=== PATIENT | female | born 1995 | race Caucasian/White ===

== ENCOUNTER 2022-12-31 15:55 | Emergency (ER) | payer OTHER, SELFPAY ==
--- NOTE | 2022-12-31 15:58 | ED.URI ---
HPI - URI/Sore Throat General Chief Complaint: Upper Respiratory Infection Stated Complaint: sorethroat Time Seen by Provider: 12/31/22 16:13 Source: patient and RN notes reviewed Mode of arrival: ambulatory Limitations: no limitations History of Present Illness HPI Narrative: 37-year-old female presents with concern for fever, chills, body aches, chills, headache. Reports symptoms started 2 days ago. She denies taking any kixx-jcv-iwwduwu medications for her symptoms MD elicited complaint: fever and sore throat Related Data Allergies Allergy/AdvReac Type Severity Reaction Status Date / Time No Known Allergies Allergy Verified 12/31/22 16:04 Review of Systems Review of Systems: CONSTITUTIONAL: Reports malaise, chills, sweats, fever. EYES: Denies visual changes, redness, or discharge. ENT: Denies rhinorrhea, congestion, sinus pain. Reports otalgia and sore throat. CARDIOVASCULAR: Denies chest pain, palpitations, or edema. RESPIRATORY: Denies cough. Denies dyspnea. GASTROINTESTINAL: Denies abdominal pain, nausea, vomiting, diarrhea SKIN: Denies rash or itching. MUSCULOSKELETAL: Denies myalgia. NEUROLOGIC: Reports headache. All systems reviewed & are unremarkable except as noted in HPI and below PMFSH Social History Social History (Updated 11/14/22 @ 11:01 by Romain Bellamy MA) Smoking status: Never smoker Smokeless tobacco user: other Second hand tobacco smoke exposure: No Alcohol intake: current Alcohol use details: social drinker Substance use: never Lack of Transportation: No Lack of Food: Never True Current Housing: I Have Housing Concerned About Future Housing: No Difficulty Paying Gas/Electric Bills: No Difficulty Paying for Meds: No Currently Unemployed: No Education: High School Diploma/GED Difficulty w/ Childcare or Family Care: No Comments At time of signature, agree with nursing past medical, surgical, social and family history. There is no relevant family history pertinent to the presenting complaint Exam Narrative: GENERAL: Well-appearing, well-nourished, and in no acute distress. HEAD: Normocephalic EYES: PERRLA, conjunctivae clear ENT: Nares clear, turbinates edematous and erythematous. Mucous membranes moist. TM pearly mills with sharp light reflex bilaterally; no tragal tenderness. Oropharynx erythematous without lesions. Tonsils not enlarged and without exudate, no drooling, no hoarseness, no trismus, uvula midline. NECK: Supple. No lymphadenopathy CHEST: Clear to auscultation, breath sounds equal. No wheezing, rhonchi, rales, or stridor. No respiratory distress, speaks in full sentences. HEART: Regular rate and rhythm. No murmur heard. SKIN: Warm, dry, no rash. NEURO: Alert and oriented x3. PSYCH: Normal mood and affect Course Course Emergency Course: Patient is aware of diagnosis, understands and agrees to treatment plan. Anticipatory guidance given. Patient agrees to follow-up as directed and is aware of reasons to seek care at the emergency department. Portions of this record may have been created with voice recognition software Level of Care: Express Care Visit Vital Signs Vital signs: Reviewed. MDM - URI/Sore Throat MDM Narrative Medical decision making narrative: Differential diagnosis considered: White virus, strep pharyngitis, allergic rhinitis, upper respiratory tract infection, sinusitis, rhinosinusitis, nasopharyngitis. viral pharyngitis, otitis media, otitis externa, pneumonia, bronchitis, viral cough syndrome, viral syndrome, and influenza. Exam findings show no acute concerns or changes; patient is non-toxic appearing and is in no distress. Patient is appropriate for outpatient treatment and follow-up. Lab Data Attestation: I reviewed the patient's lab results. Critical Care Time Critical Care Time Critical Care Time: No Discharge Plan Discharge Clinical Impression: Pharyngitis Patient Disposition: Home, Self-Ca
[2022-12-31 16:05] VITALS: BP 131/88; PULSE 94; RESP 18; TEMP 37.7; O2SAT 100
== END 2022-12-31 16:29 | disposition home or self-care (01) ==
PROVIDERS: Emergency Provider Nurse Practitioner; PCP Emergency Medicine
DX: J02.9 Acute pharyngitis, unspecified (principal)
CPT/HCPCS: 87081; 87880; 99213; G0463

== ENCOUNTER 2025-02-03 07:02 | Outpatient (CLI) | payer OTHER, SELFPAY ==
--- OUTSIDE RECORDS SUMMARY | 2025-02-03 07:04 | XMS_ITS | Clinical Summary ---
Author Organization [facility] Address [address] [place] [address] Phone Care Team Providers Care Knife Setter Assembler Name Role Phone Iliana Szymanski APRN, CNP Primary Care Provider [phone] [phone] Allergies Active Allergy Reactions Criticality Noted Date Comments Penicillin G Rash 01/17/2025 Medications dicyclomine (BENTYL) 20 MG Tablet Take 1 Tab by mouth every 6 hours. 30 Tab 0 6 Active Additional Information Patient not taking.Reported on 08/09/2024 ondansetron (ZOFRAN ODT) 4 MG TABLET DISPERSIBLE Take 1 Tab by mouth every 8 hours as needed for Nausea. 15 Tab 0 6 Active Additional Information Patient not taking.Reported on 08/09/2024 amLODIPine (NORVASC) 5 MG Tablet Take 1 Tablet by mouth daily. 90 Tablet Active Active Problems Problem Noted Date Diagnosed Date Chronic post-traumatic stress disorder (PTSD) Depression with anxiety 02/12/2021 Encounters Date Type Department Care Team Description 01/17/2025 11:10 AM CDT - 01/17/2025 1:04 PM CDT Emergency [facility] Emergency [address] [place] [address] Andrea Kimbrough DO Hypertension Discharge Disposition: Discharged to home or Selfcare 01/17/2025 Travel from Last 3 Months Family History Medical History Relation Name Comments Bipolar Disorder Father Depression Maternal Grandmother Depression Mother Bipolar Disorder Paternal Grandfather Relation Name Status Comments Father Maternal Grandmother Mother Paternal Grandfather Social History Tobacco Use Types Packs/Day Years Used Date Smoking Tobacco: Never Smokeless Tobacco: Never Alcohol Use Standard Drinks/Week Comments Not Currently 0 (1 standard drink = 0.6 oz pur e alcohol) very seldomly PHQ-2 Answer Date Recorded Total Score - Questions 1-9 0 08/0 01/2021 Sexually Active Control Partners Comments Yes I.U.D. Comments No Sex and Gender Information Value Date Recorded Sex Assigned at Not on file Legal Sex Female 7:34 PM CDT Gender Identity Not on file Sexual Orientation Not on file Last Filed Vital Signs Vital Sign Reading Time Taken Comments Blood Pressure 122/82 01/17/2025 1:00 PM CDT Pulse 84 01/17/2025 1:00 PM CDT Temperature 36.7 C (98 F) 01/17/2025 11:02 AM CDT Respiratory Rate 18 01/17/2025 1:00 PM CDT Oxygen Saturation 100% 01/17/2025 1:00 PM CDT Inhaled Oxygen Concentration - - Weight 113.4 kg (250 lb) 01/17/2025 11:02 AM CDT Height 160 cm (5' 3) 01/17/2025 11:02 AM CDT Body Mass Index 44.29 01/17/2025 11:02 AM CDT Plan of Treatment Health Maintenance Due Date Last Done Comments Hepatitis C Virus (HCV) Screening 1997 TdaP Immunization 1997 Pap Smear 2018 SARS-COV-2 Immunization ( season) 2024 Influenza Immunization (Season Ended) 2025 Respiratory Syncytial Virus (RSV) Immunization (Adult) (1 - 1-dose 75+ series) 01/23/2072 Hepatitis B Immunization Completed 997, 1997, 1997 DTaP/Tdap/Td Immunization Discontinued 2007, 08/04/1998, 1997, Additional history exists Meningococcal Immunization (ACWY) Aged Out 04/25/2008 No longer eligible based on patient's age to complete this topic Human Papillomavirus (HPV) Immunization Aged Out No longer eligible based on patient's age to complete this topic Pneumococcal Immunization Combined Aged Out No longer eligible based on patient's age to complete this topic Rotavirus Immunization Aged Out No lo nger eligible based on patient's age to complete this topic Goals Goal Patient Goal Type Associated Problems Recent Progress Patient-Stated? Author Behavioral Health Behavioral Health On track( 9:16 AM CDT) Yes Lloyd Solitario LCSW Note: I need to cope better with issues with abandonment Goal Reviewed with: patient Readiness to change: Ready to change Department associated with goal: [facility] Steps to achieve goal: Patient counseled on coping with issues of abandonment Patient counseled on coping with stress Behavioral Health Behavioral Health On track( 9:16 AM CDT) No Lloyd Solitario, LISETH Note: Goal: Patient will be able to report improved mood/ability to function to an acceptable level Goal Reviewed with: patient Readiness to change: Ready to change Department associated with goal: [facility] Steps to achieve goal: Patient counseled on coping with depressed mood Patient counseled on aspects of healthy self-care and importance of adhering to a healthy daily schedule Procedures Procedure Name Priority Date/Time Associated Diagnosis Comments CBC WITH AUTO DIFFERENTIAL STAT 01/17/2025 11:20 AM CDT TROPONIN I, HIGH SENSITIVITY (HSTRP) STAT 01/17/2025 11:20 AM CDT COMPLETE BLOOD COUNT (CBC) WITH DIFF STAT 01/17/2025 11:20 AM CDT CMP (COMPREHENSIVE METABOLIC PANEL) STAT 01/17/2025 11:20 AM CDT EKG 12 LEAD STAT 01/17/2025 11:15 AM CDT EKG SCAN 01/17/2025 12:00 AM CDT from Last 3 Months Results * TROPONIN I, HIGH SENSITIVITY (HSTRP) (01/17/2025 11:20 AM CDT) [facility] TROPONIN I, HIGH SENSITIVITY- [facility] <3 <=14 ng/L 01/17/2025 12:04 PM CDT [facility] Comment: High-sensitivity troponin I results are reported in ng/L making the result appear to be 1,000 times higher than the contemporary troponin I value which is reported in ng/ml. Results from [facility]. Blood Venipuncture / Unknown 01/17/2025 11:20 AM CDT 01/17/2025 11:39 AM CDT us Andrea Kimbrough DO CHEMISTRY ORDERABLES Fi nal Result [facility] [address] [place] [address] * (ABNORMAL) CBC with Auto Differential (01/17/2025 11:20 AM CDT) [facility] WBC 7.91 4.00 - 12.00 10(3)/mcL 01/17/2025 11:42 AM CDT [facility] RBC 4.45 3.80 - 5.30 10(6)/[facility] 01/17/2025 11:42 AM CDT [facility] HEMOGLOBIN (HGB) 12.9 12.0 - 15.8 g/dL 01/17/2025 11:42 AM CDT [facility] HEMATOCRIT (HCT) 39.8 36.0 - 47.0 % 01/17/2025 11:42 AM CDT [facility] MCV 89.4 82.0 - 96.0 fL 01/17/2025 11:42 AM CDT [facility] MCH 29.0 26.0 - 34.0 pg 01/17/2025 11:42 AM CDT [facility] MCHC 32.4 31.0 - 36.0 g/dL 01/17/2025 11:42 AM CDT [facility] PLATELET COUNT 347 140 - 440 10(3)/mcL 01/17/2025 11:42 AM CDT [facility] RDW 11.9 11.8 - 15.5 % 01/17/2025 11:42 AM CDT [facility] MPV 8.8(L) 9.7 - 12.4 fL 01/17/2025 11:42 AM CDT [facility] NEUTROPHILS 64.7 47.0 - 73.0 % 01/17/2025 11:42 AM CDT [facility] LYMPHOCYTES 25.3 18.0 - 42.0 % 01/17/2025 11:42 AM CDT [facility] MONOCYTES 6.8 4.0 - 12.0 % 01/17/2025 11:42 AM CDT [facility] EOSINOPHILS 2.7 0.0 - 5.0 % 01/17/2025 11:42 AM CDT [facility] BASOPHILS 0.5 0.0 - 1.0 % 01/17/2025 11:42 AM CDT [facility] ABSOLUTE NEUTROPHILS 5.12 1.60 - 7.70 10(3)/[facility] 01/17/2025 11:42 AM CDT [facility] ABSOLUTE LYMPHOCYTES 2.00 1.30 - 3.20 10(3)/[facility] 01/17/2025 11:42 AM CDT [facility] ABSOLUTE MONOCYTES 0.54 0.20 - 1.00 10(3)/[facility] 01/17/2025 11:42 AM CDT [facility] ABSOLUTE EOSINOPHIL 0.21 0.00 - 0.40 10(3)/[facility] 01/17/2025 11:42 AM CDT [facility] ABSOLUTE BASOPHILS 0.04 0.00 - 0.10 10(3)/[facility] 01/17/2025 11:42 AM CDT [facility] NRBC PER 100 WBC 0 01/18/20 11:42 AM CDT [facility] Blood Venipuncture / Unknown 01/17/2025 11:20 AM CDT 01/17/2025 11:39 AM CDT us Andrea Fernandez Luis E DO HEMATOLOGY ORDERABLES F inal Result [facility] [address] [place] [address] * (ABNORMAL) CMP (Comprehensive Metabolic Panel) (01/17/2025 11:20 AM CDT) SODIUM 138 136 - 145 mmol/L 01/17/2025 12:23 PM CDT [facility] POTASSIUM 3.9 3.5 - 5.1 mmol/L 01/17/2025 12:23 PM CDT [facility] CHLORIDE 105 98 - 107 mmol/L 01/17/2025 12:23 PM CDT [facility] CO2, VENOUS 23 22 - 30 mmol/L 01/17/2025 12:23 PM CDT [facility] ANION GAP 13.9 <18.0 mmol/L 01/17/2025 12:23 PM CDT [facility] GLUCOSE 150(H) 70 - 99 mg/dL 01/17/2025 12:23 PM CDT [facility] BUN 12 5 - 18 mg/dL 01/17/2025 12:23 PM CDT [facility] CREATININE, BLOOD 0.65 0.60 - 1.00 mg/dL 01/17/2025 12:23 PM CDT [facility] BUN/CREATININE RATIO 18 12 - 20 ratio 01/17/2025 12:23 PM CDT [facility] TOTAL PROTEIN 8.1(H) 6.0 - 8.0 g/dL 01/17/2025 12:23 PM CDT [facility] ALBUMIN 4.4 3.5 - 5.0 g/dL 01/17/2025 12:23 PM CDT [facility] A/G RATIO 1.2 1.0 - 2.2 01/17/2025 12:23 PM CDT [facility] CALCIUM 9.3 8.7 - 10.5 mg/dL 01/17/2025 12:23 PM CDT [facility] T BILI 0.4 0.2 - 1.2 mg/dL 01/17/2025 12:23 PM CDT [facility] SGOT (AST) 93(H) <43 U/L 01/17/2025 12:23 PM CDT [facility] SGPT (ALT) 49 <56 U/L 01/17/2025 12:23 PM CDT [facility] ALKALINE PHOSPHATASE 88 40 - 150 U/L 01/17/2025 12:23 PM CDT [facility] GFR, ESTIMATED >60 >=60 01/17/2025 12:23 PM CDT [facility] Comment: Creatinine Clearance is the preferred criteria for selecting drug dose adjustments in renally impaired patients. The GFR is provided as additional pertinent clinical information. GFR is reported in mL/min/1.73 sq m. Calculation based on the Chronic Kidney Disease Epidemiology Collaboration (CKD- EPI) equation refit without adjustment for race. GFR, EST. >60 >=60 025 12:23 PM CDT [facility] GFR, EST. NONAFRICAN >60 >=60 01/17/2025 12:23 PM CDT [facility] Blood Venipuncture / Unknown 01/17/2025 11:20 AM CDT 01/17/2025 11:39 AM CDT us Andrea Kimbrough DO CHEMISTRY ORDERABLES Fi nal Result [facility] [address] [place] [address] * EKG 12 LEAD (01/17/2025 11:15 AM CDT) Ventricular Rate 82 BPM EXTERNAL EKG Atrial Rate 82 BPM EXTERNAL EKG P-R Interval 188 ms EXTERNAL EKG QRS Duration 102 ms EXTERNAL EKG Q-T Duration 382 ms EXTERNAL EKG QTC CALCULATION 446 ms EXTERNAL EKG P [place] 26 degrees EXTERNAL EKG R [place] -11 degrees EXTERNAL EKG T [place] -1 degrees EXTERNAL EKG 01/17/2025 11:1 5 AM CDT Impressions EXTERNAL EKG - 01/18/2025 10:16 AM CDT Normal sinus rhythm Minimal voltage criteria for LVH, may be normal variant ( R in aVL ) Borderline ECG No previous ECGs available Confirmed by Julissa Piper ([id number]) on 01/18/2025 10:16:11 AM Narrative Procedure Note Julissa Piper DO - 01/18/2025 IMPRESSION: Normal sinus rhythm Minimal voltage criteria for LVH, may be normal variant ( R in aVL ) Borderline ECG No previous ECGs available Confirmed by Julissa Piper ([id number]) on 01/18/2025 10:16:11 AM us Andrea Kimbrough DO IMG ECG ORDERABLES Elizabeth l Result EXTERNAL EKG * EKG SCAN (01/17/2025 12:00 AM CDT) 01/17/2025 us Provider Scan IMG ECG ORDERABLES Final Result RESULTING AGENCY from Last [address] [place] [address] [place] [address] Care Teams Knife Setter Assembler Relationship Specialty Start Date End Date Iliana Szymanski APRN, CAPITAL EQUIPMENT SPECIALIST [facility] [address] [facility] [address] [place] [address] PCP - General Advanced Practice Nurse 02/09/21
--- OUTSIDE RECORDS SUMMARY | 2025-02-03 07:04 | XMS_ITS | Referral Summary ---
Author Organization [facility] [address] Address [address] [place] [address] Phone Care Team Providers Care Interior Design Professional Name Role Phone Musa Lee DO Primary Care Provider [phone]- [phone] Allergies No known active allergies Medications PNV cmb 61-xrha-MV-omega -3-dha 97-5-992-200 mg combo pack Take by mouth Active HYDROcodone-acet aminophen (NORCO) 5-325 mg per tabletIndication s:Pain Take 1 tablet by mouth every 4 (four) hours as needed for pain 24 tablet 12/02/2020 Active ibuprofen (ADVIL,MOTRIN) 600 mg tabletIndication s:Cramps Take 1 tablet (600 mg total) by mouth every 6 (six) hours as needed for pain 30 tablet 1 12/02/2020 Active naproxen (NAPROSYN) 500 mg tablet Take 1 tablet (500 mg total) by mouth 2 (two) times a day with meals 30 tablet 02/07/2024 Active methocarbamoL (ROBAXIN) 500 mg tablet Take 1 tablet (500 mg total) by mouth 2 (two) times a day 20 tablet 02/07/2024 Active Active Problems Problem Noted Date Diagnosed Date Depression 01/09/2009 Overview (12/05/2016): DEPRESSIVE DISORDER NEC Immunizations Immunization Administration Dates Next Due DTaP 08/04/1998,1997,1997 ,1997 DTaP 5 Pertussis 03/22/2008 Hep A, Pediatric 04/25/2008,03/06/2007 Hep B, Adolescent or Pediatric 1997,1996,1997 Hib (HbOC) 05/05/1998,1997,1997 ,1997 IPV 06/09/2002,08/04/1998,1997 ,1997 MMR 06/09/2002,05/05/1998 Meningococcal MCV4P (Menactra) 04/25/2008 Social History Tobacco Use Types Packs/Day Years Used Date Smoking Tobacco: Never Tobacco Cessation:Counseling Given: No Alcohol Use Standard Drinks/Week Comments No 0 (1 standard drink = 0.6 oz pur e alcohol) AUDIT-C Answer Date Recorded Q1: How often do you have a drink containing alc ohol? Never 11/24/2020 Average Number of Drinks Not on file 021 Frequency of Binge Drinking Not on file 10/31 Personal Safety Answer Date Recorded Have you ever been in or are you currently in a harmful physical or emotional relationship or is someone making you feel afraid or unsafe? 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 MANAGER Gender Identity Not on file Sexual Orientation Not on file Last Filed Vital Signs Vital Sign Reading Time Taken Comments Blood Pressure 151/91 02/07/2024 3:34 PM CDT Pulse 71 02/07/2024 3:34 PM CDT Temperature 36.3 C (97.4 F) 02/07/2024 3:34 PM CDT Respiratory Rate 16 02/07/2024 3:34 PM CDT Oxygen Saturation 99% 02/07/2024 3:34 PM CDT Inhaled Oxygen Concentration - - Weight 98.4 kg (217 lb) 02/07/2024 3:34 PM CDT Height 162.6 cm (5' 4) 02/07/2024 3:34 PM CDT Body Mass Index 37.25 02/07/2024 3:34 PM CDT Plan of Treatment Not on file Insurance [facility] CHOICE PLUS [facility] H[facility]/PPO Address: [facility] [address] [place] [address] Advance Directives For more information, please contact: [phone] * Full Code (Latest Code Status on File) Date Activated Date Inactivated Comments 12/01/2020 4:44 PM 12/03/2020 5:09 PM * Full Code Date Activated Date Inactivated Comments 11/30/2020 6:30 PM 12/01/2020 4:44 PM Full CPR in ca se of cardiopulmonary arrest Care Teams Interior Design Professional Relationship Specialty Start Date End Date Musa Lee DO PCP - General 12/03/16
--- OUTSIDE RECORDS SUMMARY | 2025-02-03 07:04 | XMS_ITS | Clinical Summary ---
Author Organization [facility] [address] Address [address] [place] [address] Phone Care Team Providers Care Beater Lead Name Role Phone Musa Lee DO Primary Care Provider +1- [phone] Allergies No known active allergies Medications PNV cmb 12-axfk-NB-omega -3-dha 18-6-117-200 mg combo pack Take by mouth Active [...] ,1997 MMR 06/09/2002,05/05/1998 Meningococcal MCV4P (Menactra) 04/25/2008 Surgical History Surgery Date Site/Laterality Comments OTHER SURGICAL HISTORY 2017 Menorrhagia & dysmenorrhea: Nuvaring OTHER SURGICAL HISTORY 2011 Right knee dislocation & loose cartilage: arthroscopic repair Medical History Medical History Date Comments Hx Other Medical follow up medic ation Depression Depression Hx Other Medical 2016 Menorrhagia & d ysmenorrhea Hx Other Medical 2011 Right knee disl ocation & loose cartilage Hx Other Medical Migraine headac hes Hx Other Medical Anxiety Family History Medical History Relation Name Comments Heart attack Maternal Grandfather DC; Hypertension Maternal Grandfather Hyperte nsion; Ulcerative colitis Maternal Grandmother U lcerative colitis; Hypertension Mother Hypertension; Heart disease Other Family history of Heart disease; Relation Name Status Comments Maternal Grandfather Maternal Grandmother Mother Other Social History Tobacco Use Types Packs/Day Years [...] on file Legal Sex Female 2:21 PM 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] 02/07/2024 3:34 PM CDT Plan of Treatment Health Maintenance Due Date Last Done Comments Cervical Cancer Screening 1997 Depression Screening 1997 Hepatitis C Screening 1997 Varicella Vaccines (1 of 2 - 13+ 2-dose series) 2010 Regular Well Visit/Exam 18-64 2015 DTaP/Tdap/Td Vaccine (6 - Tdap) 03/22/2018 03/22/2008, 08/04/1998, 1997, Additional history exists Influenza Vaccine (Season Ended) 2025 Hepatitis B Screening Completed 1997 , 1997, 1997 HPV Vaccines Aged Out No longer eligi ble based on patient's age to complete this topic Pneumococcal vaccine <65 Aged Out No longer eligible based on patient's age to complete this topic Insurance [facility] CHOICE PLUS Advance Directives For more information, please contact: [phone] * Full Code (Latest Code Status on File) Date Activated Date Inactivated Comments 12/01/2020 4:44 PM 12/03/2020 5:09 PM * Full Code Date Activated Date Inactivated Comments 11/30/2020 6:30 PM 12/01/2020 4:44 PM Full CPR in ca se of cardiopulmonary arrest Care Teams Beater Lead Relationship Specialty Start Date End Date Musa Lee DO PCP - General 12/03/16
[2025-02-03 20:29] LABS: Alanine Aminotransferase 133 U/L (6-35); Albumin Level 4.4 g/dL (3.5-5.1); Alkaline Phosphatase 110 U/L (38-126); Anion Gap 15 mmol/L (4-12); Aspartate Amino Transferase 216 U/L (14-36); Bilirubin,Total 0.4 mg/dL (0.2-1.3); Blood Urea Nitrogen 14 mg/dL (7-17); Calcium 9.5 mg/dL (8.4-10.2); Carbon Dioxide 20 mmol/L (22-30); Chloride 104 mmol/L (98-107); Cholesterol 148 mg/dL (0-200); Estimated Glomerular Filt Rate > 60; Glucose 198 mg/dL (65-110); HDL Direct 27 mg/dL; Potassium 4.1 mmol/L (3.4-5.0); Sodium 139 mmol/L (137-145); Total Protein 7.5 g/dL (6.3-8.2); Triglycerides 397 mg/dL (<150)
[2025-02-03 20:41] LABS: Hematocrit 40.3 % (37.0-47.0); Hemoglobin 12.2 g/dL (12.0-15.0); Mean Corpuscular HGB Conc 30.3 g/dl (32-36); Mean Corpuscular Hemoglobin 28.6 pg (26-34); Mean Corpuscular Volume 94.4 fl (80-100); Mean Platelet Volume 8.7 fl (7.4-10.4); Platelet Count Result 374 k/mm3 (150-375); Red Blood Count 4.27 M/mm3 (4.2-5.4); Red Cell Distribution Width 12.3 % (11.5-14.5); White Blood Count 7.2 K/mm3 (4.5-10.0)
[2025-02-03 20:52] LABS: LDL Cholesterol Direct 48 mg/dL
[2025-02-03 22:12] LABS: Free T4 Free Thyroxine 1.14 ng/dL (0.78-2.19); Vitamin D 25 Hydroxy 24.8 ng/mL
[2025-02-03 22:17] LABS: Hemoglobin A1C 7.4 % (<5.7)
[2025-02-07 12:59] LABS: Thyroid Peroxidase Antibodies <1 IU/mL (<9)
== END 2025-02-03 07:03 | disposition home or self-care (01) ==
LOC: ANHBWCLAB 07:03
PROVIDERS: PCP Nurse Practitioner Adult Health; Visit Provider Nurse Practitioner Adult Health
DX: E55.9 Vitamin D deficiency, unspecified (principal); Z00.00 Encounter for general adult medical examination without abnormal findings
CPT/HCPCS: 36415; 80053; 80061; 82306; 82607; 83036; 84439; 84443; 85027; 86376